=== PATIENT | male | born 1955 | race Caucasian/White ===

== ENCOUNTER 2021-04-15 07:32 | Outpatient (CLI) | payer MEDICARE ==
--- NOTE | 2021-04-15 08:28 | XRAY Report ---
PROCEDURE: Knee 3 View BILAT INDICATIONS: BILATERAL KNEE PAIN TECHNIQUE: 3 views of the bilateral knee(s) were acquired. COMPARISON: None. FINDINGS: BONES/JOINT: No acute, displaced fracture or dislocation. No substantial suprapatellar joint effusio n. Right: Narrowing of the patellofemoral joint space. Mild osteophytosis about the medial and patellofe moral compartments. A 6.6 mm calcific density projects in the anterior intercondylar region, which re flect an intra-articular body. Left: The joint spaces are maintained. Mild osteophytosis about the patellofemoral and lateral compar tments. SOFT TISSUES: No significant abnormality. IMPRESSION: 1.No acute osseous abnormality. Reviewed by: Jimy Horton MD on 04/15/2021 8:26 AM PDT Approved by: Jimy Horton MD on 04/15/2021 8:26 AM PDT Station ID: [id number]
--- NOTE | 2021-04-15 08:31 | XRAY Report ---
PROCEDURE: Foot 3 View RT INDICATIONS: 9 wks EGA with onset vag bleeding this evening OUTSIDE/PRIOR DATING DATA: Last menstrual period (LMP): 02/04/2021. LMP-based estimated date of delivery (WILL): 11/11/2021. First dating scan (date and location): 04/06/2021. Estimated date of delivery (WILL) from first dating scan: 11/12/2021. TECHNIQUE: Real-time scanning was performed of the fetus and maternal pelvic organs, with image documentation. COMPARISON: None FINDINGS: Embryo: Single live intrauterine is identified with crown-rump length measuring 2.95 cm co rresponding to 9 weeks 6 days. Heart rate: 169 bpm. Measurement variability in dating: +/- 4 weeks by LMP, +/- 7 days by mean sac diameter (use before 6 weeks gestation if crown-rump length not able to be measured), +/- 5 days by crown-rump length (6-12 weeks gestation). Maternal organs: Ovaries are unremarkable. Within the posterior fundal uterus or is a focus of heter ogeneous echogenicity measuring 1.5 x 1.7 x 2.4 cm.. IMPRESSION: 1. Single live intrauterine with ultrasound gestational age of 9 weeks 6 days. 2. Focus of posterior uterine heterogeneous echogenicity likely related to fibroid. Follow-up attenti on to this region is recommended on subsequent imaging. The above findings are concordant with preliminary report. Reviewed by: Carmen Hassan MD on 04/15/2021 8:30 AM PDT Approved by: Carmen Hassan MD on 04/15/2021 8:30 AM PDT Station ID: [id number]
== END 2021-04-15 07:33 | disposition home or self-care (01) ==
LOC: DI.S 07:32
PROVIDERS: ATTEND Registered Nurse
DX: M17.0 Bilateral primary osteoarthritis of knee (principal); M79.674 Pain in right toe(s)

== ENCOUNTER 2022-07-20 13:06 | Outpatient (CLI) | payer MEDICARE ==
--- NOTE | 2022-07-21 08:59 | XRAY Report ---
PROCEDURE: Foot 3 View LT INDICATIONS: PAIN OF TOE OF LEFT FOOT TECHNIQUE: 3 views of the foot were acquired. COMPARISON: Right foot radiographs 04/15/2021 FINDINGS: Bones: No fractures or dislocations. No suspicious bony lesions. Mild-moderate first MTP joint dege nerative changes. Soft tissues: No tibiotalar joint effusion. IMPRESSION: No acute osseous abnormality. If symptoms persist, follow-up radiographs and/or CT or MRI may be help ful for further evaluation. Reviewed by: Krishan Burroughs MD on 07/21/2022 8:58 AM [facility] Approved by: Krishan Burroughs MD on 07/21/2022 8:58 AM [facility] Station ID: [id number]
== END 2022-07-20 13:07 | disposition home or self-care (01) ==
LOC: DI.S 13:06
PROVIDERS: ATTEND Nurse Practitioner Family
DX: M79.675 Pain in left toe(s) (principal)

== ENCOUNTER 2023-01-05 12:31 | Outpatient (CLI) | payer MEDICARE ==
--- NOTE | 2023-01-05 16:27 | XRAY Report ---
PROCEDURE: Knee 3 View LT INDICATIONS: PAIN IN LFT KNEE TECHNIQUE: 3 views of the left knee were acquired. COMPARISON: None. FINDINGS: Bones: No acute fractures or dislocations. No suspicious bony lesions. Mild joint space narrowing is seen in all 3 compartments. Small marginal osteophytes are seen in the patellofemoral compartment . Soft tissues: No knee joint effusion. No suspicious soft tissue calcifications or masses. IMPRESSION: Mild osteoarthrosis. Reviewed by: Krishan Tolbert MD on 01/05/2023 4:26 PM PDT Approved by: Krishan Tolbert MD on 01/05/2023 4:26 PM PDT Station ID: [id number]
== END 2023-01-05 12:32 | disposition home or self-care (01) ==
LOC: DI.S 12:31
PROVIDERS: ATTEND Registered Nurse
DX: M17.12 Unilateral primary osteoarthritis, left knee (principal)